=== PATIENT | female | born 1995 | race American Indian/Alaskan Native ===

== ENCOUNTER 2021-06-11 04:46 | Emergency (ER) | payer SELFPAY ==
[2021-06-11 04:56] VITALS: BP 125/83
[2021-06-11] MEDS ORDERED: TETANUS,DIPH,PERTUSS(ACELL) VACCINE 0.5 ML SYRINGE IM ONE (05:09)
[2021-06-11] MEDS ORDERED: cephALEXin 500 MG CAP PO ONE (05:09)
[2021-06-11] MEDS ORDERED: LIDOCAINE (1%) 10 MG/1 ML VIAL 20 ML MDV INFILTRATI ONE (05:09)
[2021-06-11] MEDS ORDERED: traMADol 50 MG TAB PO ONE (05:09)
--- NOTE | 2021-06-11 05:46 | Emergency Department Report ---
ED General Adult HPI - General Chief complaint: Wound/Laceration Stated complaint: HAND LACERATION Time Seen by Provider: 06/11/21 05:09 Source: patient Mode of arrival: Ambulatory Limitations: No Limitations - History of Present Illness Initial comments: Patient 26-year-old -[place] female who presents for right palmar puncture wound. States puncture wound versus bone tip. Patient states incident happened approximately 2 hours ago. Bleeding was controlled by direct pressure. Range of motion remains intact there is no numbness no tingling no paralysis no deformity. No foreign body sensation noted. Severity scale (0 -10): 9 - Related Data Previous Rx's Medication Instructions Recorded Last Taken Type cephALEXin [Keflex] 500 mg PO Q8HR 7 Days #21 cap 06/11/21 Unknown Rx traMADoL [Ultram] 50 mg PO Q6HR PRN #12 tablet 06/11/21 Unknown Rx Allergies Allergy/AdvReac Type Severity Reaction Status Date / Time No Known Allergies Allergy Verified 06/11/21 05:19 ED Review of Systems ROS: Stated complaint: HAND LACERATION Other details as noted in HPI Constitutional: denies: chills, fever Eyes: denies: eye pain, eye discharge, vision change ENT: denies: ear pain, throat pain Respiratory: denies: cough, shortness of breath, wheezing Cardiovascular: denies: chest pain, palpitations Endocrine: no symptoms reported Gastrointestinal: denies: abdominal pain, nausea, diarrhea Genitourinary: denies: urgency, dysuria, discharge Musculoskeletal: denies: back pain, joint swelling, arthralgia Skin: other (Laceration right palm) Neurological: denies: headache, weakness, paresthesias Psychiatric: denies: anxiety, depression Hematological/Lymphatic: denies: easy bleeding, easy bruising ED Past Medical Hx - Past Medical History Previous Medical History?: No - Surgical History Past Surgical History?: No Additional Surgical History: c section - Medications Home Medications: Home Medications Medication Instructions Recorded Confirmed Last Taken Type cephALEXin [Keflex] 500 mg PO Q8HR 7 Days #21 cap 06/11/21 Unknown Rx traMADoL [Ultram] 50 mg PO Q6HR PRN #12 tablet 06/11/21 Unknown Rx ED Physical Exam - General Limitations: No Limitations General appearance: alert, in no apparent distress - Head Head exam: Present: atraumatic, normocephalic - Eye Eye exam: Present: normal appearance, EOMI Pupils: Present: normal accommodation - ENT ENT exam: Present: mucous membranes moist - Neck Neck exam: Present: normal inspection, full ROM - Respiratory Respiratory exam: Present: normal lung sounds bilaterally. Absent: respiratory distress, wheezes - Cardiovascular Cardiovascular Exam: Present: regular rate, normal rhythm, normal heart sounds. Absent: systolic murmur, diastolic murmur, rubs, gallop - GI/Abdominal GI/Abdominal exam: Present: soft, normal bowel sounds. Absent: distended, tenderness - Rectal Rectal exam: Present: deferred - Extremities Exam Extremities exam: Present: normal inspection, normal capillary refill - Expanded Upper Extremity Exam Right Hand Wrist exam: Present: full ROM, laceration (Palmar circular flap one each). Absent: ecchymosis, deformity, crepidus, dislocation, erythema, amputation Neuro motor exam: Present: wrist extension intact, thumb opposition intact, thumb IP flexion intact, thumb adduction intact, fingers 2-5 abduction intact Neurosensory exam: Present: radial nerve intact Vascular: Present: radial pulse - Back Exam Back exam: Present: normal inspection, full ROM. Absent: tenderness - Neurological Exam Neurological exam: Present: alert, oriented X3, normal gait, motor sensory deficit - Expanded Neurological Exam Expanded Patient oriented to: Present: person, place, time Motor strength exam: RUE: 5, LUE: 5 DTR: bicep (R): 1+, bicep (L): 1+ Best Eye Response ([place]): (4) open spontaneously Best Motor Response ([place]): (6) obeys commands Best Verbal Response ([place]): (5) oriented [place] Total: 15 - Psychiatric Psychiatric exam: Present: normal affect, normal mood - Skin Skin exam: Present: warm, dry, normal color, other (Laceration as above.) ED Course Vital Signs 06/11/21 04:51 Temperature 98.6 F Pulse Rate 103 H Respiratory 18 Rate Blood Pressure 125/83 [Right] O2 Sat by Pulse 100 Oximetry - Laceration /Wound Repair Left Palm Hand Wound Location: upper extremity (right palmar flap laceration 1 inch) Wound Length (cm): 3 Wound's Depth, Shape: superficial, flap Wound Explored: clean Irrigated w/ Saline (ccs): 60 Betadine Prep?: Yes Anesthesia: 1% Lidocaine Volume Anesthetic (ccs): 4 Wound Debrided: minimal Wound Repaired With: sutures Suture Size/Type: 3:0, proline Number of Sutures: 10 Sterile Dressing Applied?: Yes Progress: 3 cm right palm laceration flap site cleaned with Betadine solution, anesthesia with 1% lidocaine via 4 cc anesthesia is achieved. 60 cc sterile saline minimal debridement, no nerve muscle tissue damage range of motion is intact flexion extension to direct apposition intact distal pulses intact +2 CAREERS COUNSELLOR less than 3 seconds bilateral, risk assessment analyst are equal. Wound closed with 3-0 Prolene running times 10 sutures. Edges are well approximated all bleeding is controlled patient tolerated procedure with minimal distress. Patient given wound care instructions including follow-up with PCP in 2 days for wound check symptoms of infection, and return in 7 to 10 days for suture removal. Patient verbalized agreement and understanding with discharge plan patient will be DC'd home in stable condition at this time sterile dressing is applied. ED Medical Decision Making - Medical Decision Making Right palm laceration. See procedure note for repair. All bleeding is controlled. CMS intact. Patient given wound care instructions. Patient DC'd home in stable condition at this time. Critical care attestation.: If time is entered above; I have spent that time in minutes in the direct care of this critically ill patient, excluding procedure time. ED Disposition Clinical Impression: Laceration of right hand Qualifiers: Encounter type: initial encounter Foreign body presence: without foreign body Qualified Code(s): S61.411A - Laceration without foreign body of right hand, initial encounter Disposition: 01 HOME / SELF CARE / HOMELESS Is pt being admited?: No Does the pt Need Aspirin: No Condition: Stable Instructions: Sutured Wound Care Additional Instructions: Take medications as prescribed, follow-up with your doctor in 2 days for wound check follow-up with your doctor in 7 to 10 days for suture removal. Note symptoms of infection as discussed and agreed. Return to ER should symptoms worsen. Prescriptions: cephALEXin [Keflex] 500 mg PO Q8HR 7 Days #21 cap traMADoL [Ultram] 50 mg PO Q6HR PRN #12 tablet PRN Reason: Pain Referrals: KYMBERLY CANTRELL MD [Staff Physician] - 3-5 Days Forms: Work/School Release Form(ED) Time of Disposition: 06:27
== END 2021-06-11 06:51 | disposition home or self-care (01) ==
LOC: ED 04:46
DX: S61.411A Laceration without foreign body of right hand, initial encounter (principal); Z98.890 Other specified postprocedural states; W26.8XXA Contact with other sharp object(s), not elsewhere classified, initial encounter; Y93.89 Activity, other specified; Y92.89 Other specified places as the place of occurrence of the external cause; Y99.8 Other external cause status
CPT/HCPCS: 90471; 90715; 99282

== ENCOUNTER 2021-06-20 22:01 | Emergency (ER) | payer SELFPAY ==
[2021-06-20 22:07] VITALS: BP 113/58
--- NOTE | 2021-06-20 22:38 | Emergency Department Report ---
ED General Adult HPI - General Chief complaint: Laceration/Recheck/Suture Stated complaint: STICHES REMOVAL Source: patient Mode of arrival: Ambulatory Limitations: No Limitations - History of Present Illness Initial comments: Patient is a 26-year-old -[place] female with no past medical history presents to the ED for suture removal from a recently sutured right palm l aceration that happened 2 weeks ago. Patient states that she has been taking prophylactic antibiotics and just completed it today. Patient denies numbness and tingling or weakness of right palm, fever, chills, nausea and vomiting, dizziness, syncope, swelling or fall. MD Complaint: Suture removal from right Palm laceration, sutured 2 weeks ago -: Sudden, week(s) (2) Location: upper extremity (Right palm) Radiation: extremity (Right palm) Severity scale (0 -10): 1 Quality: dull Consistency: constant Improves with: none Worsens with: none Associated Symptoms: denies other symptoms. denies: confusion, chest pain, cough, diaphoresis, fever/chills, headaches, loss of appetite, nausea/vomiting, rash, seizure, shortness of breath, syncope, weakness, other Treatments Prior to Arrival: none - Related Data Previous Rx's Medication Instructions Recorded Last Taken Type cephALEXin [Keflex] 500 mg PO Q8HR 7 Days #21 cap 06/11/21 Unknown Rx traMADoL [Ultram] 50 mg PO Q6HR PRN #12 tablet 06/11/21 Unknown Rx Allergies Allergy/AdvReac Type Severity Reaction Status Date / Time No Known Allergies Allergy Verified 06/11/21 05:19 ED Review of Systems ROS: Stated complaint: STICHES REMOVAL Other details as noted in HPI Constitutional: denies: chills, fever Eyes: denies: eye pain, eye discharge, vision change ENT: denies: ear pain, throat pain Respiratory: denies: cough, shortness of breath, wheezing Cardiovascular: denies: chest pain, palpitations Endocrine: no symptoms reported Gastrointestinal: denies: abdominal pain, nausea, diarrhea Genitourinary: denies: urgency, dysuria, discharge Musculoskeletal: other (Healed previously sutured right thumb laceration wound). denies: back pain, joint swelling, arthralgia Skin: other (Healed right palm previously sutured laceration wound). denies: rash, lesions Neurological: denies: headache, weakness, paresthesias Psychiatric: denies: anxiety, depression Hematological/Lymphatic: denies: easy bleeding, easy bruising ED Past Medical Hx - Past Medical History Previous Medical History?: No - Surgical History Past Surgical History?: Yes Additional Surgical History: c section - Social History Smoking Status: Never Smoker Substance Use Type: None - Medications Home Medications: Home Medications Medication Instructions Recorded Confirmed Last Taken Type cephALEXin [Keflex] 500 mg PO Q8HR 7 Days #21 cap 06/11/21 Unknown Rx traMADoL [Ultram] 50 mg PO Q6HR PRN #12 tablet 06/11/21 Unknown Rx ED Physical Exam - General Limitations: No Limitations General appearance: alert, in no apparent distress - Head Head exam: Present: atraumatic, normocephalic, normal inspection - Eye Eye exam: Present: normal appearance, PERRL, EOMI Pupils: Present: normal accommodation - ENT ENT exam: Present: normal exam, normal orophraynx, mucous membranes moist, TM's normal bilaterally, normal external ear exam - Neck Neck exam: Present: normal inspection, full ROM - Respiratory Respiratory exam: Present: normal lung sounds bilaterally. Absent: respiratory distress, wheezes, rales, rhonchi, stridor, chest wall tenderness, accessory muscle use, decreased breath sounds, prolonged expiratory - Cardiovascular Cardiovascular Exam: Present: regular rate, normal rhythm, normal heart sounds. Absent: systolic murmur, diastolic murmur, rubs, gallop - GI/Abdominal GI/Abdominal exam: Present: soft, normal bowel sounds. Absent: distended, tenderness, guarding, rebound, hyperactive bowel sounds, hypoactive bowel sounds, mass - Extremities Exam Extremities exam: Present: normal inspection, full ROM, tenderness (Palpable mild right palm tenderness, with sutures on the fully healed right palm that was recently sutured), normal capillary refill - Back Exam Back exam: Present: normal inspection, full ROM. Absent: tenderness, CVA tenderness (R), CVA tenderness (L), muscle spasm - Neurological Exam Neurological exam: Present: alert, oriented X3, CN II-XII intact, normal gait, reflexes normal - Psychiatric Psychiatric exam: Present: normal affect, normal mood - Skin Skin exam: Present: warm, dry, intact, normal color, other (Closed, healed right palm previously sutured laceration wound). Absent: rash ED Course Vital Signs 06/20/21 22:05 Temperature 98.6 F Pulse Rate 72 Respiratory 16 Rate Blood Pressure 113/58 O2 Sat by Pulse 97 Oximetry - Procedure Description Procedures done: Right palm previously sutured laceration wound with sutures. - The wound was isolated and sutures were cut with a pair of scissors and pulled out. A total of 10 sutures were removed from the fully healed right palm laceration wound that was previously sutured. -Patient tolerated the procedure well, and was discharged home and advised to continue taking the previously prescribed medications as needed and to follow-up with the primary care physician in 7 to 10 days for reevaluation or return to the ED immediately if symptoms get worse. ED Medical Decision Making - Medical Decision Making This is a 26-year-old -[place] female with no past medical history presents to the ED for suture removal from a recently sutured right palm laceration that happened 2 weeks ago. Patient states that she has been taking prophylactic antibiotics and just completed it today. In the ED, patient is alert and oriented x3 and is not in any distress. The previously sutured right palm laceration wound was evaluated and sutures were cut with a pair of scissors and pulled out of the fully healed wound. Patient tolerated procedure well. Patient was therefore discharged home and advised to continue taking the previously prescribed pain medication as needed and to follow-up with her primary care physician in 7 to 10 days for reevaluation or return to the ED immediately if symptoms get worse. - Differential Diagnosis Infected wound; cellulitis; laceration Critical care attestation.: If time is entered above; I have spent that time in minutes in the direct care of this critically ill patient, excluding procedure time. ED Disposition Clinical Impression: Encounter for removal of sutures, Laceration of superficial palmar arch of right hand, subsequent encounter Disposition: HOME / SELF CARE / HOMELESS Is pt being admited?: No Does the pt Need Aspirin: No Condition: Stable Additional Instructions: Continue taking the previously prescribed pain medication as needed with food, drink plenty of fluids and follow-up with your primary care physician as needed. Return to the ED immediately if symptoms get worse. Referrals: [facility] [Provider Group] - as needed Time of Disposition: 22:37 Print Language: [place]
== END 2021-06-20 22:57 | disposition home or self-care (01) ==
LOC: ED 22:01
DX: S61.411D Laceration without foreign body of right hand, subsequent encounter (principal); X58.XXXD Exposure to other specified factors, subsequent encounter; Z48.01 Encounter for change or removal of surgical wound dressing